=== PATIENT | female | born 2000 | race Hispanic/Latino ===

== ENCOUNTER 2021-12-04 18:50 | Emergency (ER) | payer OTHER, SELFPAY ==
--- NOTE | ~2021-12-04 | XR_ITS ---
EXAM: XR knee LT min 4V DATE: 12/04/2021 19:37 HISTORY: fall today;med Lt knee pain,unable to straighten . COMPARISON: None available. FINDINGS: Normal mineralization. No fracture or dislocation. No lytic or blastic lesion. Joint space s are maintained. No erosion or periosteal change. Soft tissues within normal limits. Small volume trish int fluid. IMPRESSION: No acute osseous finding in the left knee. Reviewed, dictated and finalized at location K.
[2021-12-04 18:55] VITALS: BP 122/67; PULSE 121; RESP 15; TEMP 36.7; O2SAT 100
--- NOTE | 2021-12-04 19:06 | ED.LOWEXIN ---
HPI - Extremity Injury (Lower) General Chief Complaint: Extremity Injury, Lower Stated Complaint: left knee injury Time Seen by Provider: 12/04/21 19:02 Source: RN notes reviewed History of Present Illness HPI Narrative: Patient presents emergency department from home for left knee pain. Patient states that this morning she was playing soccer when she twisted and felt a pop in her knee since that time she is had pain in her knee with pain with ambulating states she is unable to bear weight on the left knee she also states the pain is worse when she extends her left knee she denies any direct trauma to the knee no one struck the knee states she did go to the ground after the knee popped patient denies any numbness or tingling in the leg or any other symptoms states she has not taking pain medication for the symptoms Related Data Allergies Allergy/AdvReac Type Severity Reaction Status Date / Time NKDA Allergy Unknown Uncoded 08/27/02 13:17 Review of Systems Review of Systems: Gen.: Denies fevers or chills Musculoskeletal: See HPI Neuro: Denies numbness, tingling, weakness Skin: Denies rash Endo: Denies DM PMFSH Past Medical History Medical History (Updated 12/04/21 @ 20:23 by Pipo Lawrence DO) Patient denies significant medical history Social History Social History (Updated 12/04/21 @ 19:07 by Pipo Lawrence DO) Smoking status: Never smoker Exam Narrative: APPEARANCE: No acute distress, nontoxic, resting in bed Eyes: EOMI HEENT: Normocephalic, atraumatic, RESPIRATORY: No respiratory distress MUSCULOSKELETAl: Tender palpation of the left medial knee no swelling noted no tenderness over the anterior medial or posterior knee pain with extension of the knee no tenderness of the left ankle or hip dorsalis pedis pulse 2+ neurovascular intact NEURO: Awake and alert. Following commands, speech normal, no focal deficits SKIN:: Warm, dry. Normal Color no rash or lesions Course Course Emergency Course: Discussed with patient results of workup and diagnosis. Discussed need for follow-up with primary care, proper use of medication, and reasons to return to the emergency department. Patient understands and agrees to current treatment plan Vital Signs Vital signs: Vital Signs Temperature 98.0 F 12/04/21 18:55 Pulse Rate 121 H 12/04/21 18:55 Respiratory Rate 15 12/04/21 18:55 Blood Pressure 122/67 12/04/21 18:55 Pulse Oximetry 100 12/04/21 18:55 Oxygen Delivery Room Air 12/04/21 18:55 Temperature 98.0 F 12/04/21 18:55 Pulse Rate 121 H 12/04/21 18:55 Respiratory Rate 15 12/04/21 18:55 Blood Pressure 122/67 12/04/21 18:55 Pulse Oximetry 100 12/04/21 18:55 Oxygen Delivery Room Air 12/04/21 18:55 MDM - Extremity Injury (Lower) Imaging Data Radiologist's impression: ITS Impressions Knee X-Ray 12/04/21 20:13 IMPRESSION: No acute osseous finding in the left knee. Discharge Plan Discharge Clinical Impression: Left knee sprain Patient Disposition: Home, Self-Care Condition: Stable Instructions: Antibiotic Form, Knee Sprain (ED) Additional Instructions: Return for increasing pain numbness or tingling in extremities or any other symptoms of concern Prescriptions: New ibuprofen 600 mg tablet 600 mg PO TID PRN (Reason: pain) Qty: 14 0RF Follow-up/Referrals: Fernando Braga MD [Physician] - (Follow-up in 2 to 3 days for further orthopedic treatment and evaluation) PHYSICIAN NOT ON STAFF,NONSTAFF [Primary Care Provider] - Time of Disposition: 20:23
[2021-12-04] MEDS: IBUPROFEN 600 MG TABLET PO (19:20)
--- NOTE | 2021-12-04 20:02 | PC.NURSE ---
Pt educated on crutch training. This RN applied knee immobilizer to left knee.
== END 2021-12-04 20:31 | disposition home or self-care (01) ==
PROVIDERS: Emergency Provider Emergency Medicine
DX: S83.92XA Sprain of unspecified site of left knee, initial encounter (principal); X50.9XXA Other and unspecified overexertion or strenuous movements or postures, initial encounter; Y93.66 Activity, soccer
CPT/HCPCS: 73564; 99283; A9270

== ENCOUNTER → 2021-12-29 14:00 | Outpatient (CLI) | payer OTHER, SELFPAY ==
--- NOTE | ~2021-12-29 | MR_ITS ---
EXAMINATION: MR knee LT wo con DATE: 12/29/2021 14:44 INDICATION: One month of medial left knee pain, popping and limited range of motion post fall one mon th prior. TECHNIQUE: Magnetic resonance imaging (MRI) of the left knee was performed without intravenous contra st. Sequences included coronal PD-weighted FSE, coronal PD-weighted FS FSE, sagittal T2-weighted FSE , sagittal PD-weighted FS FSE and axial PD weighted fat saturated FSE. COMPARISON: None. FINDINGS: Medial compartment: Medial meniscus is normal. Articular cartilage is normal. Lateral compartment: Lateral meniscus is normal. Articular cartilage is normal. Patellofemoral compartment: Articular cartilage is normal. Ligaments and tendons: Anterior and posterior cruciate ligaments are normal. The fibular collateral ligament complex is norm al. Mild partial tear at the junction of the medial patellofemoral retinaculum and the anterior pam n of the proximal medial collateral ligament. Patellar and quadriceps tendons are normal. The visuali zed medial and lateral hamstring tendons as well as the iliotibial band are normal. Fluid: Physiologic amount of fluid in the joint space. No loose osteochondral bodies identified. Osseous/other: Prominent bone marrow edema without evident fracture line centered along the nonarticular medial surf chong of the medial femoral condyle and small region of mild marrow edema at the medial inferior patell a which along with the medial patellofemoral retinacular tear would be consistent with a patellar dis location/relocation injury. No fracture or pathologic marrow replacing process. IMPRESSION: 1. Lateral patellar dislocation/relocation injury with tear at the junction of the medial patellofemo ral retinaculum and anterior margin of the medial collateral ligament and corresponding bone contusio ns at the patella and nonarticular medial side of the medial femoral condyle. Reviewed, dictated and finalized at location A. IMPRESSION: 1. Lateral patellar dislocation/relocation injury with tear at the junction of the medial patellofemoral retinaculum and anterior margin of the medial collate ral ligament and corresponding bone contusions at the patella and nonarticular medial side of the medial femoral condyle.
== END ==
PROVIDERS: PCP Orthopaedic Surgery; Visit Provider Orthopaedic Surgery
DX: S83.242A Other tear of medial meniscus, current injury, left knee, initial encounter (principal); X58.XXXA Exposure to other specified factors, initial encounter
CPT/HCPCS: 73721

== ENCOUNTER 2025-01-14 12:30 | Outpatient (RCR) | payer OTHER, SELFPAY | END 2025-01-14 23:59 | disposition home or self-care (01) | LOC: ANHAUDIO 12:30 | DX: H90.3 Sensorineural hearing loss, bilateral (principal) | CPT/HCPCS: 92557; 92567; 99199; V5257; V5264 ==